=== PATIENT | male | born 1970 | race Caucasian/White ===

== ENCOUNTER 2018-05-08 20:07 | Inpatient (IN) | payer OTHER ==
[~2018-05-08] VITALS: Ht 188 cm; Wt 64.0 kg
[~2018-05-08 20:07] MED LIST: ADVAIR HFA120 INHALA IH; AUGMENTIN875 MG PO; FERROUS SULFAT325 MG PO; HYDROCODON-ACE1 EAC7 PO; PROBIOTIC GUMMIES PO; PROTONIX40 MG PO; RANITIDINE HCL300 M1 PO; SPIRIVA1 INHALATI IH; SUBOXONE 8 MG-1 EAC2 SL; TUMS500 MG PO; TYLENOL EXTRA500 MG PO
[2018-05-08 20:57] LABS: HEMATOCRIT 33.7 % (38.0-50.0); HEMOGLOBIN 11.1 G/DL (12.5-16.6); MCH 28.9 PG (29.0-34.0); MCHC 32.9 G/DL (30.0-36.0); MCV 87.8 FL (86-99); PLATELET COUNT 332 K/uL (156-360); RBC DIS.WIDTH-SD 61.1 % (39-53); RED BLOOD COUNT 3.84 M/uL (4.00-5.50); WHITE BLOOD COUNT 6.2 K/uL (4.1-10.2)
[2018-05-08 21:06] LABS: CHLORIDE 111 mEq/L (99-109); SODIUM 140 mEq/L (136-147)
[2018-05-08 21:07] LABS: GLUCOSE 114 mg/dL (70-99)
[2018-05-08 21:11] LABS: GFR ESTIMATE (CALCULATED) > 59 mL/min/ (58.99-99999)
[2018-05-08 21:12] LABS: UREA NITROGEN (BUN) 19 mg/dL (9-23)
[2018-05-08 21:19] LABS: TROP-I INTERPRETATION NEGATIVE; TROPONIN-I < 0.01 ng/mL (0.0-0.30)
[2018-05-08] MEDS ORDERED: SUBOXONE 2 MG-1 EACH SL (22:33)
[2018-05-08] MEDS ORDERED: SUBOXONE 4 MG-1 EACH SL (22:33)
[2018-05-08] MEDS ORDERED: ZANTAC150 MG PO (22:34)
[2018-05-08] MEDS ORDERED: PRILOSEC OTC20 MG PO (22:34)
[2018-05-09] VITALS (7 sets, daily range): BP systolic 92–124; BP diastolic 52–62
[2018-05-09 01:05] LABS: ALBUMIN 3.5 g/dL (3.2-4.8)
[2018-05-09 01:10] LABS: TOTAL BILIRUBIN 0.2 mg/dL (0.0-1.0)
[2018-05-09 01:11] LABS: ALKALINE PHOSPHATASE 144 IU/L (3-129)
[2018-05-09 01:13] LABS: AST (GOT) 23 IU/L (2-34)
[2018-05-09 01:14] LABS: ALT (GPT) 24 IU/L (3-49); LIPASE 162 U/L (1.0-51.0)
[2018-05-09 01:28] LABS: DIRECT BILIRUBIN 0.1 mg/dL (0.0-0.3)
[2018-05-09 06:25] LABS: BASOPHIL (%) 1.4 % (0-1); BASOPHIL COUNT 0.1 K/uL (0-0.1); EOSINOPHIL (%) 5.6 % (0-5); EOSINOPHIL COUNT 0.3 K/uL (0-0.3); HEMATOCRIT 28.4 % (38.0-50.0); IMMATURE GRANULOCYTE (%) 0.2 % (0.0-0.7); LYMPHOCYTE (%) 27.6 % (15-42); LYMPHOCYTE COUNT 1.4 K/uL (1.0-2.8); MCH 27.6 PG (29.0-34.0); MCHC 31.3 G/DL (30.0-36.0); MCV 88.2 FL (86-99); MONOCYTE (%) 7.8 % (3-12); MONOCYTE COUNT 0.4 K/uL (0-0.8); NEUTROPHIL (%) 57.4 % (45-76); NEUTROPHIL COUNT 2.9 K/uL (1.8-6.4); PLATELET COUNT 264 K/uL (156-360); RBC DIS.WIDTH-CV 18.9 % (11.8-14.6); RBC DIS.WIDTH-SD 61.1 % (39-53); RED BLOOD COUNT 3.22 M/uL (4.00-5.50)
[2018-05-09 06:26] LABS: HEMOGLOBIN 8.9 G/DL (12.5-16.6)
[2018-05-09 06:40] LABS: CHLORIDE 111 MEQ/L (99-109); CREATININE 0.8 MG/DL (0.6-1.3); GFR ESTIMATE (CALCULATED) > 59 mL/min/ (58.99-99999); POTASSIUM 3.8 MEQ/L (3.7-5.4); SODIUM 139 MEQ/L (136-147); UREA NITROGEN (BUN) 16 mg/dL (9-23)
[2018-05-09 06:43] LABS: GLUCOSE 73 mg/dL (70-99)
[2018-05-09 17:50] LABS: HIGH-SENS C-REACTIVE PROTEIN > 8.00 MG/DL (0.02-0.20)
[2018-05-09 23:34] LABS: TOTAL PROTEIN 5.2 g/dL (6.4-8.3)
[2018-05-09 23:36] LABS: TOTAL BILIRUBIN 0.2 mg/dL (0.0-1.0)
[2018-05-09 23:37] LABS: ALKALINE PHOSPHATASE 120 IU/L (3-129)
[2018-05-09 23:39] LABS: AST (GOT) 14 IU/L (2-34); DIRECT BILIRUBIN 0.1 mg/dL (0.0-0.3)
[2018-05-09 23:40] LABS: ALT (GPT) 16 IU/L (3-49)
[2018-05-10 03:10] VITALS: BP 107/62
[2018-05-10 06:19] LABS: APPEARANCE CLEAR ((CLEAR)); BILIRUBIN NEGATIVE; BLOOD NEGATIVE; COLOR YELLOW ((YELLOW)); GLUCOSE (STRIP) NEGATIVE; KETONES 5; LEUKOCYTES NEGATIVE; NITRITE NEGATIVE; PROTEIN (STRIP) NEGATIVE; SPECIFIC GRAVITY 1.029 (1.000-1.030); UCUL ADDED? NO; UROBILINOGEN 0.2 MG/DL (0.2-1.0)
[2018-05-10 06:50] VITALS: BP 109/63
[2018-05-10 07:17] LABS: IMMUNOGLOBULIN G 531 MG/DL (650-1600); IMMUNOGLOBULIN M 57 MG/DL (50-300)
[2018-05-10 08:40] LABS: HEMATOCRIT 27.6 % (38.0-50.0); HEMOGLOBIN 8.9 G/DL (12.5-16.6); MCHC 32.2 G/DL (30.0-36.0); MCV 89.9 FL (86-99); PLATELET COUNT 253 K/uL (156-360); RBC DIS.WIDTH-SD 62.3 % (39-53); RED BLOOD COUNT 3.07 M/uL (4.00-5.50); WHITE BLOOD COUNT 4.4 K/uL (4.1-10.2)
[2018-05-10 08:54] LABS: CHLORIDE 111 MEQ/L (99-109); POTASSIUM 3.4 MEQ/L (3.7-5.4); SODIUM 142 MEQ/L (136-147)
[2018-05-10 09:00] LABS: CREATININE 0.5 MG/DL (0.6-1.3); GFR ESTIMATE (CALCULATED) > 59 mL/min/ (58.99-99999); GLUCOSE 78 mg/dL (70-99); UREA NITROGEN (BUN) 9 mg/dL (9-23)
[2018-05-10 10:35] VITALS: BP 100/60
[2018-05-10 15:15] VITALS: BP 101/64
[2018-05-10 23:02] VITALS: BP 113/69
[2018-05-11 06:38] VITALS: BP 113/69
[2018-05-11 16:31] VITALS: BP 108/62
[2018-05-11 22:42] VITALS: BP 114/74
[2018-05-12 07:19] VITALS: BP 120/71
[2018-05-12 09:00] LABS: HEMATOCRIT 29.2 % (38.0-50.0); HEMOGLOBIN 9.2 G/DL (12.5-16.6); MCH 28.4 PG (29.0-34.0); MCHC 31.5 G/DL (30.0-36.0); MCV 90.1 FL (86-99); PLATELET COUNT 287 K/uL (156-360); RBC DIS.WIDTH-CV 18.5 % (11.8-14.6); RBC DIS.WIDTH-SD 59.7 % (39-53); RED BLOOD COUNT 3.24 M/uL (4.00-5.50); WHITE BLOOD COUNT 3.3 K/uL (4.1-10.2)
[2018-05-12 09:24] LABS: CHLORIDE 107 MEQ/L (99-109); CREATININE 0.5 MG/DL (0.6-1.3); GFR ESTIMATE (CALCULATED) > 59 mL/min/ (58.99-99999); POTASSIUM 3.6 MEQ/L (3.7-5.4); SODIUM 140 MEQ/L (136-147); UREA NITROGEN (BUN) 6 mg/dL (9-23)
[2018-05-12 09:35] LABS: GLUCOSE 114 mg/dL (70-99)
[2018-05-12 16:17] VITALS: BP 122/79
[2018-05-13 00:08] VITALS: BP 112/70
[2018-05-13 06:45] VITALS: BP 113/70
[2018-05-13] MEDS ORDERED: AMOX TR-K CLV1 EAC4 PO (11:26)
[2018-05-13] MEDS ORDERED: VENTOLIN HFA18 GM IH (11:26)
== END 2018-05-13 15:17 | disposition home or self-care (01) | DRG 193 ==
LOC: EME 20:07 → 5EAST 23:23 → EDOF 23:23 → 5EAST 05-09 00:28
PROVIDERS: Hospitalist; Internal Medicine; Nurse Practitioner Adult Health; Student in an Organized Health Care Education/Training Program
DX: J15.9 Unspecified bacterial pneumonia (principal); R63.4 Abnormal weight loss; Z68.1 Body mass index [BMI] 19.9 or less, adult; K83.1 Obstruction of bile duct; E87.8 Other disorders of electrolyte and fluid balance, not elsewhere classified; T17.990A Other foreign object in respiratory tract, part unspecified in causing asphyxiation, initial encounter; D50.0 Iron deficiency anemia secondary to blood loss (chronic); K26.7 Chronic duodenal ulcer without hemorrhage or perforation; K25.7 Chronic gastric ulcer without hemorrhage or perforation; K86.89 Other specified diseases of pancreas; K29.90 Gastroduodenitis, unspecified, without bleeding; R62.7 Adult failure to thrive; I10 Essential (primary) hypertension; F11.21 Opioid dependence, in remission; K21.9 Gastro-esophageal reflux disease without esophagitis; G43.909 Migraine, unspecified, not intractable, without status migrainosus; F17.210 Nicotine dependence, cigarettes, uncomplicated; Z87.01 Personal history of pneumonia (recurrent)
CPT/HCPCS: 71046; 71260; 80048; 80076; 81003; 82784; 83605; 83690; 84484; 85025; 85027; 85651; 86038; 86141; 86850; 86900; 86901; 87040; 87070; 87205; 87449; 93005; 94760; 94799; 99281; 99285; C9113; J0295; J0456; J0572; J1650; J7030; J7050